=== PATIENT | male | born 1975 | race African-American/Black ===

== ENCOUNTER 2018-08-22 01:18 | Emergency (ER) | payer OTHER ==
[~2018-08-22] VITALS: Ht 175.3 cm; Wt 73.6 kg
--- NOTE | 2018-08-22 01:36 | NUR ---
O2 APPLIED 2L NC, SIDE RAILS UP TIMES TWO FOR PT SAFETY, WARM BLANKETS GIVEN, CONTINUOUS SPO2 MONITORING AND CARDIAC MONITORING AT THIS TIME. NO VISIBLE INJURIES NOTED TO PT
--- NOTE | 2018-08-22 02:30 | NUR ---
SLEEPING QUIETLY, RESP RATE EVEN AND REGULAR, RESPONSIVE ONLY TO VERBAL AT THIS TIME.
--- NOTE | 2018-08-22 03:13 | NUR ---
PT OPEN EYES TO VERBAL, REMAINS UNSAFE FOR DISCHARGE.
--- NOTE | 2018-08-22 04:30 | NUR ---
SLEEPING QUIETLY, RESP RATE EVEN AND REGULAR, MOST CERTAINLY NOT SAFE FOR DISCHARGE AT THIS TIME, SPO2 100% 2L
--- NOTE | 2018-08-22 05:30 | NUR ---
SLEEPIN QUIETLY, AWAKEN WITH SHAKING, NON VERBAL, AWAIT SOBRIETY FOR SAFE DISCHARGE. SPO2 100%2L
--- NOTE | 2018-08-22 06:01 | NUR ---
SLEEPING QUIETLY AT THIS TIME, RESP RATE EVEN AND REG, SPO2 100% 2L
[2018-08-22 07:16] VITALS: BP 123/78
--- NOTE | 2018-08-22 07:18 | NUR ---
Pt ambulated to NAD. alert and awake.
== END 2018-08-22 07:29 | disposition home or self-care (01) ==
LOC: ED 06:45
DX: F10.120 Alcohol abuse with intoxication, uncomplicated (principal)
CPT/HCPCS: 36415; 80307; 99283